=== PATIENT | female | born 1990 | race Caucasian/White ===

== ENCOUNTER 2016-10-21 01:54 | Observation (INO) | payer OTHER ==
[~2016-10-21 01:54] MED LIST: ALBUPOW26; PRENATAL VITAMINS
== END 2016-10-21 02:30 | disposition still patient (30) | DRG 781 ==
LOC: LDRP 01:54
PROVIDERS: ADMIT Obstetrics & Gynecology; ATTEND Obstetrics & Gynecology
DX: O26.892 Other specified pregnancy related conditions, second trimester (principal); R10.10 Upper abdominal pain, unspecified; Z3A.21 21 weeks gestation of pregnancy
CPT/HCPCS: 59025; G0378

== ENCOUNTER 2016-10-21 02:37 | Emergency (ER) | payer OTHER ==
[~2016-10-21] VITALS: Ht 167.6 cm; Wt 95.3 kg
[2016-10-21 03:07] LABS: Basophils # (auto) 0.1 uL; Basophils % (auto) 0.3 % (0.0-2.0); Eosinophils # (auto) 0 uL; Eosinophils % (auto) 0.1 % (0.0-7.0); Hematocrit 39.4 % (36.0-46.0); Hemoglobin 13.4 g/dL (12.2-16.2); Lymphocytes # (auto) 2.1 uL; Lymphocytes % (auto) 12.5 % (10.0-50.0); Mean Corpuscular Hemoglobin 30.4 pg (28.0-32.0); Mean Corpuscular Hgb Conc. 33.8 g/dL (32.0-36.0); Mean Corpuscular Volume 89.9 fL (80.0-100.0); Mean Platelet Volume 8.5 fL (7.4-10.4); Monocytes # (auto) 0.3 uL; Monocytes % (auto) 1.8 % (0.0-12.0); Neutrophils # (auto) 14.2 uL; Neutrophils % (auto) 85.3 % (37.0-80.0); Platelet Count (auto) 305 10^3/uL (140-450); Red Cell Distribution Width 13.9 % (11.6-16.0); White Blood Cell 16.6 10^3/uL (4.4-10.8)
[2016-10-21 03:23] LABS: Urine RBC None Seen /hpf (0 - 4)
[2016-10-21 03:25] LABS: Albumin 3.2 g/dL (3.4-5.0); BUN/Creatinine Ratio 8.8; Calcium 8.9 mg/dL (8.5-10.1); Magnesium 1.8 mg/dL (1.6-2.6); Potassium 3.3 mmol/L (3.5-5.1)
[2016-10-21 03:28] LABS: Bilirubin, Total 1.1 mg/dL (0.2-1.0); Total Protein 7.7 g/dL (6.4-8.2)
[2016-10-21 03:40] LABS: Urine Bilirubin Negative (Negative); Urine Blood Negative /uL (Negative); Urine Color Yellow (Yellow); Urine Glucose Normal (Normal); Urine Mucus FEW (None Seen); Urine Nitrite Negative (Negative); Urine Squamous Epithelial Cell MOD /hpf (<5); Urine pH 8.5 (5.0-8.0)
[2016-10-21 03:41] LABS: Urine Ketone 2+ (Negative)
[2016-10-21] MEDS ORDERED: SODIUM CHLORIDE 0.9% 1,000 ML IV ONE (07:45)
[2016-10-21] MEDS ORDERED: HYDROcodone-ACET 5/325MG TAB PO ONE ×2 (07:45→12:30)
[2016-10-21] MEDS ORDERED: NITROFURANTOIN (MONO) 100 mg CAP PO ONE (13:00)
[2016-10-21 14:53] VITALS: BP 125/82
== END 2016-10-21 15:56 | disposition short-term general hospital (02) ==
LOC: ER 02:42
DX: O26.892 Other specified pregnancy related conditions, second trimester (principal); K80.70 Calculus of gallbladder and bile duct without cholecystitis without obstruction; O23.42 Unspecified infection of urinary tract in pregnancy, second trimester; Z3A.22 22 weeks gestation of pregnancy; R79.89 Other specified abnormal findings of blood chemistry; E87.6 Hypokalemia; K21.9 Gastro-esophageal reflux disease without esophagitis; J45.909 Unspecified asthma, uncomplicated
CPT/HCPCS: 36415; 76705; 80053; 81001; 82150; 83690; 83735; 84702; 85025; 94761; 96360; 96361; 99285; J7030